=== PATIENT | female | born 1995 | race Two or more races ===

== ENCOUNTER → 2020-02-12 | Emergency (ER) | payer OTHER | END | disposition left against medical advice (07) | LOC: ER 13:54 | DX: Z53.20 Procedure and treatment not carried out because of patient's decision for unspecified reasons (principal) ==

== ENCOUNTER → 2020-09-23 06:30 | Outpatient (CLI) | payer OTHER | END | disposition home or self-care (01) | LOC: LAB 06:30 | PROVIDERS: ATTEND Specialist | DX: Z34.01 Encounter for supervision of normal first pregnancy, first trimester (principal); Z03.818 Encounter for observation for suspected exposure to other biological agents ruled out; Z20.822 Contact with and (suspected) exposure to COVID-19 ==

== ENCOUNTER 2021-01-07 07:14 | Outpatient (CLI) | payer OTHER | END 2021-01-07 07:15 | disposition home or self-care (01) | LOC: LAB 07:14 | PROVIDERS: ATTEND Specialist | DX: Z34.03 Encounter for supervision of normal first pregnancy, third trimester (principal) ==

== ENCOUNTER 2021-01-27 17:50 | Inpatient (IN) | payer OTHER ==
[~2021-01-27] VITALS: Ht 167.6 cm; Wt 80.7 kg
== END 2021-01-31 12:56 | disposition home or self-care (01) | DRG 807 ==
LOC: OBS/DEL 17:50 → OB/GYN 01-29 03:08 → LDR 01-29 03:08 → OB/GYN 01-29 08:27
PROVIDERS: ADMIT Specialist; ATTEND Specialist
PROC: 10E0XZZ Delivery of Products of Conception, External Approach (ICD-10-PCS; principal; 2021-01-29)
PROC: 0HQ9XZZ Repair Perineum Skin, External Approach (ICD-10-PCS; 2021-01-29)
PROC: 10907ZC Drainage of Amniotic Fluid, Therapeutic from Products of Conception, Via Natural or Artificial Opening (ICD-10-PCS; 2021-01-29)
PROC: 3E033VJ Introduction of Other Hormone into Peripheral Vein, Percutaneous Approach (ICD-10-PCS; 2021-01-29)
PROC: 4A1HXFZ Monitoring of Products of Conception, Cardiac Rhythm, External Approach (ICD-10-PCS; 2021-01-29)
DX: O70.0 First degree perineal laceration during delivery (principal); Z37.0 Single live birth; Z3A.40 40 weeks gestation of pregnancy